=== PATIENT | male | born 1940 | race Caucasian/White ===

== ENCOUNTER 2018-05-20 18:05 | Emergency (ER) | payer BC, MEDICARE ==
[2018-05-20 18:49] VITALS: BP 109/90
--- NOTE | 2018-05-20 19:11 | ED ---
Skin Complaint - HPI Summary HPI Summary: Patient presents with tick bite to right side of his anterior thorax. Noticed this today and suspects it climbed on while [place] in [place] firewood. He does have a red area around the tick but no latrell EM rash. Tick is still alive and not engorged. Patient is up-to-date with immunizations. He admits to a history of tick bites in the past which he has removed without difficulty but has never had this amount of irritation to the skin before. 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 - Pain Intensity: 0 - Allergy/Home Medications Allergies/Adverse Reactions: Allergies Allergy/AdvReac Type Severity Reaction Status Date / Time No Known Allergies Allergy Verified 05/20/18 18:49 Home Medications: Home Medications Finasteride TAB* [Proscar TAB*] 5 mg PO BEDTIME 05/20/18 [History Confirmed ] Omeprazole CAP* [Prilosec CAP* 20 MG] 20 mg PO DAILY 05/20/18 [History Confirmed 05/20/18] Tamsulosin CAP* [Flomax CAP*] 0.4 mg PO BEDTIME 05/20/18 [History Confirmed ] PMH/Surg Hx/FS Hx/Imm Hx Previously Healthy: Yes Endocrine/Hematology History: Reports: Hx Thyroid Disease Denies: Hx Anticoagulant Therapy, Hx Blood Disorders, Hx Unexplained Bleeding , Hx Coagulopothy Respiratory History: Denies: Hx Seasonal Allergies - Surgical History Surgery Procedure, Year, and Place: left knee replacement. T&A. appy. hernia repair - Immunization History Immunizations Up to Date: Yes Infectious Disease History: No Infectious Disease History: Denies: Traveled Outside the [place] in Last 30 Days - Social History Occupation: Retired Lives: With Family Alcohol Use: Weekly Hx Substance Use: No Substance Use Type: Reports: None Hx Tobacco Use: Yes - not currently Smoking Status (MU): Former Smoker Review of Systems Constitutional: Negative Positive: no symptoms reported Musculoskeletal: Negative Positive: Rash Neurological: Negative Psychological: Normal All Other Systems Reviewed And Are Negative: Yes Physical Exam Triage Information Reviewed: Yes Vital Signs On Initial Exam: Initial Vitals Temp Pulse Resp BP Pulse Ox 98.7 F 57 16 109/90 98 10/16/18 18:43 05/20/18 18:43 05/20/18 18:43 05/20/18 18:43 05/20/18 18:43 Vital Signs Reviewed: Yes Appearance: Positive: Well-Appearing, No Pain Distress, Well-Nourished Skin: Positive: Warm, Skin Color Reflects Adequate Perfusion, Dry - tick alive and imbedded in Rt anteiror thorax - peripheral erythema w/o latrell EM rash - blanchable - area where tick is attached is purpuric - tick is brown and not engorged ENT: Positive: Hearing grossly normal Respiratory/Lung Sounds: Positive: Breath Sounds Present Musculoskeletal: Positive: Normal, Strength/ROM Intact Neurological: Positive: Normal, Sensory/Motor Intact, Alert, Oriented to Person Place, Time, CN Intact II-III Psychiatric: Positive: Normal Procedures - Procedure Summary Procedure Summary: tick completely removed w/ tick puller - pt tolerated well Diagnostics - Vital Signs Vital Signs Temp Pulse Resp BP Pulse Ox 05/20/18 18:43 98.7 F 57 16 109/90 98 - Laboratory Lab Statement: Any lab studies that have been ordered have been reviewed, and results considered in the medical decision making process. Course/Dx - Diagnoses Provider Diagnoses: Tick bite of abdomen Discharge - Sign-Out/Discharge Documenting (check all that apply): Patient Departure All imaging exams completed and their final reports reviewed: No Studies - Discharge Plan Condition: Stable Disposition: HOME Prescriptions: DOXYcycline CAP(*) [DOXYcycline 100MG CAP(*)] 200 mg PO DAILY #2 cap Patient Education Materials: Tick Bite (ED) Referrals: Keon Mercedes MD [Primary Care Provider] - Additional Instructions: Tick was completely removed without difficulty and no bulls eye rash. If redness is still present or worse tomorrow morning, you may take a one time dose of doxycycline with food (avoid dairy). Monitor for signs of cellulitis and if these present, follow-up with your PCP. And although risk of Lyme disease transmission is low based on your specific case, monitor for bulls eye rash and/or symptoms of Lyme disease and seek medical attention if they present. - Billing Disposition and Condition Condition: STABLE Disposition: Home
== END 2018-05-20 19:20 | disposition home or self-care (01) ==
LOC: UCEAST 18:05
DX: S30.861A Insect bite (nonvenomous) of abdominal wall, initial encounter (principal); W57.XXXA Bitten or stung by nonvenomous insect and other nonvenomous arthropods, initial encounter; Y93.01 Activity, walking, marching and hiking; Y92.821 Forest as the place of occurrence of the external cause; Z96.652 Presence of left artificial knee joint; Z87.891 Personal history of nicotine dependence
CPT/HCPCS: 99202; G0463